=== PATIENT | male | born 1940 | race Caucasian/White ===

== ENCOUNTER → 2021-11-22 09:47 | Outpatient (CLI) | payer MEDICARE, OTHER, SELFPAY ==
--- NOTE | 2021-11-22 09:55 | DI.CT.S_ITS ---
PROCEDURE: CT CHEST HIGH RESOLUTION INDICATIONS: Cough, unspecified TECHNIQUE: Noncontrast 1.0 and 5.0 mm thick contiguous axial sections from the pulmonary apex to the posterior costophrenic angles, with 7 mm thick coronal and sagittal MIP reformats. 1 mm thick dynamic expiratory images acquired through the upper, mid, and lower lungs. 1.0 mm thick axial sections acquired from the fletcher to the posterior costophrenic angles in the prone end-inspiration position. For radiation dose reduction, the following was used: automated exposure control, adjustment of mA and/or kV according to patient size. COMPARISON: None. FINDINGS: Image quality: Excellent. Lungs: No air trapping seen on dynamic images. Scattered areas of scarring and atelectasis without convincing reticulation. These areas change slightly on acquisitions from 2 different positions. Prone images were not acquired. No definite reticulation, ground-glass opacity, or nodularity in any specific pattern. Pulmonary micro nodules are present best seen on maximum intensity projection images, for example in the right image . Follow-up is optional for high risk patients in 1 year. Pleura: Small left pleural effusion. Mediastinum: Heart size is enlarged,. Mitral annular calcifications and aortic valve replacement. No hiatal hernia. Prominent subcarinal node. No other lymph nodes enlarged by size criteria, these are nonspecific. No thoracic aortic aneurysm. Bones and chest wall: No acute or suspicious osseous abnormality. Thyroid is within normal limits. Sternotomy wires are present.. Abdomen: Probable hepatic cysts. Subcentimeter lesions are too small to characterize. Dominant left upper pole renal cyst is present, partially seen. These are only partially evaluated. IMPRESSION: No specific evidence of interstitial lung disease. Left small pleural effusion is present. Probable scarring and atelectasis at the bases. Other findings as above. Dictated by: Leo Paz M.D. on 11/22/2021 at 13:29 Approved by: Leo Paz M.D. on 11/22/2021 at 13:38
== END ==
PROVIDERS: Referring Provider Internal Medicine Pulmonary Disease; Visit Provider Internal Medicine Pulmonary Disease
DX: J90 Pleural effusion, not elsewhere classified (principal); R05.9 Cough, unspecified
CPT/HCPCS: 71250

== ENCOUNTER → 2021-11-22 09:56 | Outpatient (CLI) | payer MEDICARE, OTHER, SELFPAY ==
[2021-11-22 11:21] LABS: COVID19 -Nasal RAPID Negative (Negative)
== END ==
PROVIDERS: Referring Provider Internal Medicine; Visit Provider Internal Medicine
DX: Z20.822 Contact with and (suspected) exposure to COVID-19 (principal)
CPT/HCPCS: 87635; C9803

== ENCOUNTER → 2021-11-22 09:59 | Outpatient (CLI) | payer MEDICARE, OTHER, SELFPAY ==
--- NOTE | 2021-11-24 07:44 | PM.PFT.1 ---
Pulmonary Function Test Referral & Results Date Patient Seen: 11/22/21 Requesting provider: Donna Clarke Results: The spirometry demonstrates an FVC of 1.84 L which is 49% of predicted. The FEV1 was measured at 1.44 L which is 54% of predicted. The FEV1/FVC ratio was 78 which is 108% of predicted. Following the administration of bronchodilator there was no appreciable change. Lung volumes show an SVC of 2.01 L which is 48% of predicted. The diffusing capacity was measured at 20.47 which is 69% of predicted. No hemoglobin value was provided, so no correction for potential anemia could be made, if appropriate. The maximum voluntary ventilation was severely reduced Interpretation: This study demonstrates perhaps mild obstructive lung disease based on reduction FEV1, although FEV1/FVC ratio is preserved and there is no evidence of benefit following bronchodilator the shape of the flow volume loop also supports the presence of some degree of obstructive lung disease in my opinion Lung volumes are moderately reduced suggesting the presence of moderately severe restrictive lung disease which may well explain the abnormality in the FEV1 above but probably not fully Diffusing capacity is mildly reduced suggesting the presence of disease at the capillary alveolar as well Clinical correlation suggested
== END ==
PROVIDERS: Referring Provider Internal Medicine Pulmonary Disease; Visit Provider Internal Medicine Pulmonary Disease
DX: R06.02 Shortness of breath (principal); Z87.891 Personal history of nicotine dependence; J98.8 Other specified respiratory disorders; Z20.822 Contact with and (suspected) exposure to COVID-19; J90 Pleural effusion, not elsewhere classified; R05.9 Cough, unspecified
CPT/HCPCS: 71250; 87635; 94060; 94726; 94729; C9803

== ENCOUNTER → 2022-12-07 13:31 | Outpatient (CLI) | payer OTHER, SELFPAY ==
--- NOTE | 2022-12-07 13:32 | DI.ECHO.S_ITS ---
[facility] +---------+ : : [address] : : : : [id number] : : : : Phone: [phone]---------+ Echocardiogram Report + + :Name: CLAUDIA MEZA Study Date: 12/07/2022 Height: 68 in : :[facility] ReadingLocation: Weight: 290 lb : : Gender: Male BSA: 2.4 m2 : :: 1940 Age: 82 yrs BP: 146/90 mmHg: :Reason For Study: Aortic Valve Stenosis : :Ordering Physician: THOM, : :SEGR Performed By: Ira Lozada : :Referring: SERG TOMAS : + + Interpretation Summary The left ventricle is borderline dilated. Left ventricular systolic function is mild to moderately reduced. Left ventricular ejection fraction is estimated to be 40%. The right ventricle is mildly dilated. The right ventricular systolic function is normal. The left atrium is mildly dilated. A 23mm [employer] aortic valve is present. There is trace perivalvular regurgitation around the prosthetic aortic valve. The peak aortic velocity is 2.42 m/sec. There is no other significant valvular heart disease. The ascending aorta is mildly enlarged. Procedure: A two-dimensional transthoracic echocardiogram with color flow and Doppler was performed. The study quality was technically adequate. There is no prior echocardiogram noted for this patient. The patient was in normal sinus rhythm during the exam. Left Ventricle: The left ventricle is borderline dilated. Left ventricular wall thickness is mildly increased. Left ventricular systolic function is mild to moderately reduced. Left ventricular ejection fraction is estimated to be 40%. There is mild to moderate global hypokinesis of the left ventricle. Diastolic function could not be accurately assessed due to contradictory data. Right Ventricle: The right ventricle is mildly dilated. The right ventricular systolic function is normal. Atria: The left atrium is mildly dilated. Right atrial size is normal. There is no Doppler evidence for an interatrial shunt. Mitral Valve: The mitral valve leaflets appear mildly thickened, but open well. There is mild mitral annular calcification. There is no mitral valve stenosis. There is trace mitral regurgitation. Aortic Valve: A 23mm [employer] aortic valve is present. There is trace perivalvular regurgitation around the prosthetic aortic valve. The peak aortic velocity is 2.42 m/sec. The aortic valve mean gradient is 13 mmHg. Tricuspid Valve: The tricuspid valve is normal. There is no tricuspid stenosis. There is trace tricuspid regurgitation. Pulmonic Valve: The pulmonic valve is not well visualized. There is no pulmonic valvular stenosis. There is trace pulmonic regurgitation. There is no other significant valvular heart disease. Great Vessels: The aortic root is normal size. The ascending aorta is mildly enlarged. The pulmonary artery is normal size. The inferior vena cava was not well visualized. Pericardium/ Pleura There is no pericardial effusion. There is no pleural effusion. MMode/2D Measurements & Calculations LVIDd: 5.3 cm LVOT diam: 2.0 cm LVIDs: 4.5 cm asc Aorta Diam: 3.8 cm FS: 15.1 % IVSd: 1.4 cm LVPWd: 1.3 cm LV gomez. diameter/BSA (cm/m^2): 2.2 LV sys. diameter/BSA (cm/m^2): 1.9 LA A2 area: 25.1 cm2 RA long axis: 5.9 cm LA A4 area: 22.5 cm2 RA area: 15.9 cm2 LA length (vol): 5.8 cm RA vol: 36.5 ml LA vol: 82.2 ml RA : 15.3 ml/m2 LA vol index: 34.4 ml/m2 RVD1 (basal): 4.7 cm LVLs ap4: 6.9 cm LVLd ap2: 8.1 cm TAPSE_phl: 1.9 cm LVLs ap2: 7.0 cm Doppler Measurements & Calculations Ao V2 max: 235.2 cm/sec LVOT Max Placido: 76.6 cm/sec Ao V2 mean: 160.6 cm/sec LV V1 max P.3 mmHg Ao max P.0 mmHg LV V1 VTI: 18.6 cm Ao mean P.2 mmHg REBECA(I,D): 1.1 cm2 Ao V2 VTI: 51.4 cm REBECA(V,D): 1.0 cm2 sev ratio: 0.36 REBECA indexed to BSA (cm^2/m^2): 0.47 MV E max placido: 97.1 cm/sec TR max placido: 183.0 cm/sec MV A max placido: 106.0 cm/sec TR max P.4 mmHg MV E/A: 0.92 PA V2 max: 82.5 cm/sec Med Peak E' Placido: 4.9 cm/sec PA V2 mean: 60.3 cm/sec E/E' med: 19.7 PA mean P.0 mmHg Lat Peak E' Placido: 6.8 cm/sec PA pr(Accel): 43.5 mmHg E/E' lat: 14.4 E/e' average: 17.0 MV dec time: 0.22 sec MVA(VTI): 1.5 cm2 MV V2 mean: 64.2 cm/sec SV(LVOT): 58.4 ml MV mean P.9 mmHg MV V2 VTI: 38.5 cm AV VR_phl: 0.33 REBECA(VTI)/BSA_phl: 0.48 Reading Physician:02:58 PM
== END ==
PROVIDERS: PCP Internal Medicine Cardiovascular Disease; Referring Provider Internal Medicine Cardiovascular Disease; Visit Provider Internal Medicine Cardiovascular Disease
DX: I35.0 Nonrheumatic aortic (valve) stenosis (principal); I51.7 Cardiomegaly; Z95.4 Presence of other heart-valve replacement
CPT/HCPCS: 93306